=== PATIENT | female | born 1955 | race Caucasian/White ===

== ENCOUNTER 2024-03-30 10:17 | Outpatient (RCR) | payer MEDICARE, OTHER, SELFPAY | END 2024-05-16 13:59 | disposition home or self-care (01) | LOC: HO.WCC 10:17 | PROVIDERS: PCP Internal Medicine; Visit Provider Surgery | DX: I87.333 Chronic venous hypertension (idiopathic) with ulcer and inflammation of bilateral lower extremity (principal); L97.822 Non-pressure chronic ulcer of other part of left lower leg with fat layer exposed; L97.812 Non-pressure chronic ulcer of other part of right lower leg with fat layer exposed; L85.3 Xerosis cutis | CPT/HCPCS: 11042; 11045; 97597 ==